=== PATIENT | male | born 1985 | race Caucasian/White ===

== ENCOUNTER 2023-02-08 04:04 | Emergency (ER) | payer BC ==
[2023-02-08] MEDS ORDERED: Proparacaine 0.5% Ophth Soln 15 ML Bottle EYELF ONE (04:31)
[2023-02-08] MEDS ORDERED: Tetracaine HCl/PF 0.5% 4 ML Bottle ONE (04:35)
[2023-02-08] MEDS ORDERED: Fluorescein 1 MG Ophth Strip ONE (04:35)
[2023-02-08] MEDS ORDERED: Erythromycin Base 0.5% Ophth Oint 1 GM Tube ONE (05:02)
[2023-02-08] MEDS ORDERED: Erythromycin Base 0.5% Ophth Oint 1 GM Tube EYELF ONE (05:04)
== END 2023-02-08 05:50 | disposition home or self-care (01) ==
LOC: JD.ED 04:04
DX: H57.12 Ocular pain, left eye (principal)
CPT/HCPCS: 99283; A9270; 99281; J3490